=== PATIENT | female | born 1970 | race Asian ===

== ENCOUNTER 2016-07-05 19:00 | Emergency (ER) | payer OTHER ==
[2016-07-05] MEDS ORDERED: ACETAMINOPHEN 325 MG TAB As Ordered ONE (19:44)
--- NOTE | 2016-07-05 20:50 | REPUSA ---
HISTORY: Trauma TECHNIQUE: -CT head: Axial CT was obtained at 5 mm slice thickness from the skull base to the vertex without the use of intravenous contrast. -CT C-spine: Contiguous noncontrast transaxial 2.[address] images were obtained through the cervical sp ine. Reconstructions were then created in the axial plane at 1.25 mm from which reformations were gen erated in the coronal and sagittal planes. COMPARISON: None FINDINGS: CT head: No acute intracranial hemorrhage or evidence of acute transcortical ischemia. No intra-axial or extra ction fluid collection, subfalcine herniation, midline shift, or hydrocephalus. There is diffuse mild to moderate prominence of the cortical sulci and ventricular system; consistent with age-appropriate cerebral and cerebellar and cerebral atrophy. Mild to moderate bilateral perive ntricular and subcortical white matter hypolucencies also noted consistent with chronic microvascular ischemic changes. The posterior fossa and brainstem are within normal limits. The osseous structures are intact. The pa ranasal sinuses, mastoid air cells, orbital compartments, and extra cranial soft tissues are unremark able. CT C-spine: No acute fracture, dislocation, or suspicious lesion. No evidence of significant arthritis and alignment is maintained without spondylolisthesis. There are no significant disc herniations or evidence of canal stenosis. The foramina, vertebral body, and dis c space heights are preserved. Odontoid process is intact. The neck soft tissues and airways are unremarkable with no hematoma or swelling. IMPRESSION: No acute intracranial or C-spine injury.
[2016-07-05] MEDS ORDERED: tiZANidine 4 MG TAB As Ordered ONE (21:09)
[2016-07-05] MEDS ORDERED: IBUPROFEN 400 MG TAB As Ordered ONE (21:09)
--- NOTE | 2016-07-05 21:22 | EDDOCDS ---
Physician Documentation [facility] Name: Mario Alberto Jones Age: 46 yrs Sex: Female : 1970 Arrival Date: 07/05/2016 Time: 19:00 Bed I7 / 29 Private MD: Other - Complete Info On Cds Disposition: 07/05/16 20:59 Discharged to Home/Self Care. Impression: Sprain of ligaments of cervical spine. - Condition is Stable. - Discharge Instructions: Cervical Sprain. - Prescriptions for Zanaflex 4 mg Oral Tablet - take 1 tablet by ORAL route every 8 hours As needed; 20 tablet. Ibuprofen 400 mg Oral Tablet - take 1 tablet by ORAL route every 6 hours As needed take with food; 30 tablet. - Medication Reconciliation, Local Pharmacy Hours form. - Follow up: [facility]; When: 4 - 5 days; Reason: Continuance of care. Follow up: Emergency Department; When: As needed; Reason: Worsening of conditions. - Problem is new. - Symptoms have improved. Historical: - Allergies: No known drug Allergies; - Home Meds: 1. none - PMHx: none; - PSHx: none; - Social history: Smoking status: Patient states was never smoker of tobacco. No barriers to communication noted, The patient speaks fluent Danish, Speaks appropriately for age. - Family history: Not pertinent. - : The pt / caregiver states he / she is not on anticoagulants. Home medication list is obtained from the patient. - Exposure Risk Screening:: None identified. 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 1 in. (154.94 cm) (R); Pain 3/10; 19:57 BP 107 / 64; Pulse 78; Resp 18; Temp 98.1(O); Pulse Ox 98% on R/A; Pain 0/10; kb5 21:04 BP 108 / 65; Pulse 80; Resp 18; Temp 98.0(O); Pulse Ox 98% on R/A; Pain 0/10; kb5 19:03 Body Mass Index 20.79 (49.90 kg, 154.94 cm) gr2 MDM: 19:29 Recheck Vital Signs, perform reassessment and enter into [employer] ordered. dk1 19:29 Acetaminophen Tablet 650 mg PO once ordered. dk1 19:30 CT Head Without Contrast Ordered. EDMS 19:30 CT Spine,Cervical W/o Contrast Ordered. EDMS 20:17 Financial registration complete. gjb 21:02 Ibuprofen 400 mg PO once ordered. dk1 21:02 tiZANidine 4 mg PO once; dispense to go, pt is driving ordered. dk1 Administered Medications: 19:47 Drug: Acetaminophen 650 mg [acetaminophen 325 mg tablet (2 tabs)] Route: PO; ld5 21:17 Follow up: Response: No significant change. ld5 21:16 Drug: Ibuprofen 400 mg [ibuprofen 400 mg tablet (1 tabs)] Route: PO; ld5 21:17 Follow up: Response: Pt left department before re-evaluation is appropriate ld5 21:16 Drug: tiZANidine 4 mg Route: PO; ld5 21:17 Follow up: Response: Med's dispensed home ld5 Signatures: Dispatcher [employer] EDMS Isaías Wong, RN RN Daquan De Souza, PAPenny PA-C dk1 Nilda AngelesRN RN ld5 Jodi Babcock MTDD
--- NOTE | 2016-07-05 21:22 | EDDOCDS ---
Nurse's Notes [facility] Name: Mario Alberto Jones Age: 46 yrs Sex: Female : 1970 Arrival Date: 07/05/2016 Time: 19:00 Bed I7 / 29 Private MD: Other - Complete Info On Cds Diagnosis: Sprain of ligaments of cervical spine Presentation: 07/05 19:14 Presenting complaint: Patient states: she fell yesterday landing on back and striking cz head on pavement no LOC today pt has stiff neck and pain with movement. Adult Sepsis Screening: The patient does not have new or worsening altered mentation. Patient's respiratory rate is less than 22. Systolic blood pressure is greater than 100. Patient has a qSOFA score of 0- Negative Sepsis Screen. Suicide/Homicide risk assessment- the patient denies having any suicidal and/or homicidal ideations and does not present with any other emotional, behavioral or mental health complaints. Status: The patient is a dependent. Transition of care: patient was not received from another setting of care. 19:14 Acuity: KEITH Level 4 cz 19:14 Method Of Arrival: Walkin/Carried/Asstd cz Triage Assessment: 19:16 General: Appears in no apparent distress. Pain: Location: neck Pain currently is 4 out cz of 10 on a pain scale. 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 none - PMHx: none; - PSHx: none; - Social history: Smoking status: Patient states was never smoker of tobacco. No barriers to communication noted, The patient speaks fluent Kinyarwanda, Speaks appropriately for age. - Family history: Not pertinent. - : The pt / caregiver states he / she is not on anticoagulants. Home medication list is obtained from the patient. - Exposure Risk Screening:: None identified. Screenin:18 Screening information is obtained from the patient. Fall risk: No risks identified. ld5 Assistance ADL's: requires no assistance with activities of daily living. Abuse/DV Screen: The patient / caregiver reports he/she is: not in a situation that causes fear, pain or injury. Nutritional screening: No deficits noted. Advance Directives: There is no active DNR order. home support is adequate. Assessment: 19:47 General: Appears in no apparent distress, Behavior is cooperative. Pain: Location: neck ld5 Pain currently is 4 out of 10 on a pain scale. Neurological: Level of Consciousness is awake, alert. Respiratory: Airway is patent Respiratory effort is even, unlabored. Musculoskeletal: collar in place. 21:18 General: Appears in no apparent distress, Behavior is cooperative. Neurological: Level ld5 of Consciousness is awake, alert. Respiratory: Airway is patent Respiratory effort is even, unlabored. Vital Signs: 19:03 BP 120 / 52; Pulse 86; Resp 18 S; Temp 98.6(O); Pulse Ox 99% on R/A; Weight 49.9 kg gr2 (R); Height 5 ft. 1 in. (154.94 cm) (R); Pain 3/10; 19:57 BP 107 / 64; Pulse 78; Resp 18; Temp 98.1(O); Pulse Ox 98% on R/A; Pain 0/10; kb5 21:04 BP 108 / 65; Pulse 80; Resp 18; Temp 98.0(O); Pulse Ox 98% on R/A; Pain 0/10; kb5 19:03 Body Mass Index 20.79 (49.90 kg, 154.94 cm) gr2 Vitals: 19:03 Log In Time: July 05, 2016 at 19:03. gr2 ED Course: 19:02 Patient visited by Yaneli Cuba. gr2 19:02 Patient moved to Waiting gr2 19:03 Other - Complete Info On Cds is Private Physician. gr2 19:04 Patient visited by Yaneli Cuba. gr2 19:04 Patient moved to Pre RCE gr2 19:16 Triage Initiated cz 19:18 Patient moved to I7 cz 19:25 Daquan Moe PA-C is PHCP. dk1 19:25 Bentley Richardson DO is Attending Physician. dk1 19:26 Patient visited by Daquan Moe PA-C. dk1 19:34 Patient visited by Yaneli Cuba. gr2 19:48 Patient visited by Nilda Angeles RN. ld5 19:58 Patient visited by Mina Anderson PCA. kb5 20:59 [facility] is Referral Physician. dk1 21:09 Patient visited by Mina Anderson PCA. kb5 21:18 The patient / caregiver is instructed regarding the plan of care and ED course. Patient ld5 has correct armband on for positive identification. 21:18 No IV's were initiated during this patient's visit. No procedures done that require ld5 assistance. 21:21 Patient visited by Nilda Angeles RN. ld5 Administered Medications: 19:47 Drug: Acetaminophen 650 mg [acetaminophen 325 mg tablet (2 tabs)] Route: PO; ld5 21:17 Follow up: Response: No significant change. ld5 21:16 Drug: Ibuprofen 400 mg [ibuprofen 400 mg tablet (1 tabs)] Route: PO; ld5 21:17 Follow up: Response: Pt left department before re-evaluation is appropriate ld5 21:16 Drug: tiZANidine 4 mg Route: PO; ld5 21:17 Follow up: Response: Med's dispensed home ld5 Order Results: There are currently no results for this order. Outcome: 20:59 Discharge ordered by Provider. dk1 21:18 Discharge Assessment: Patient awake, alert and oriented x 3. No cognitive and/or ld5 functional deficits noted. Patient verbalized understanding of disposition instructions. patient administered narcotics - no. The following High Risk Discharge criteria are identified: None. Discharged to home ambulatory. Condition: stable. Discharge instructions given to patient, Instructed on discharge instructions, follow up and referral plans. medication usage, no driving heavy equipment, Demonstrated understanding of instructions, medications, Pt was receptive of discharge instructions/ teaching. Prescriptions given X 2. CT Study completed. Property :Personal belongings accompany Pt. 21:21 Patient left the ED. ld5 Signatures: Isaías Wong RN RN cz Keyes, David, PA-C PA-C dk1 Mina Anderson, SURGERY SPECIALIST SURGERY SPECIALIST kb5 Nilda Angeles RN RN ld5 Yaneli Cuba gr2 Corrections: (The following items were deleted from the chart) 19:34 19:03 BP 120 / 52; Pulse 86bpm; Resp 18bpm; Spontaneous; Pulse Ox 66% RA; Temp 98.6F gr2 Oral; 49.9 kg Reported; Height 5 ft. 1 in. Reported; BMI: 20.7; Pain 3/10; gr2 MTDD
--- NOTE | 2016-07-07 22:22 | EDDOCDS ---
Nurse's Notes [facility] Name: Mario Alberto Jones Age: 46 yrs Sex: Female : 1970 Arrival Date: 07/05/2016 Time: 19:00 Bed I7 / 29 Private MD: Other - Complete Info On Cds Diagnosis: Sprain of ligaments of cervical spine Presentation: 07/05 19:14 Presenting complaint: Patient states: she fell yesterday landing on back and striking cz head on pavement no LOC today pt has stiff neck and pain with movement. Adult Sepsis Screening: The patient does not have new or worsening altered mentation. Patient's respiratory rate is less than 22. Systolic blood pressure is greater than 100. Patient has a qSOFA score of 0- Negative Sepsis Screen. Suicide/Homicide risk assessment- the patient denies having any suicidal and/or homicidal ideations and does not present with any other emotional, behavioral or mental health complaints. Status: The patient is a dependent. Transition of care: patient was not received from another setting of care. 19:14 Acuity: KEITH Level 4 cz 19:14 Method Of Arrival: Walkin/Carried/Asstd cz Triage Assessment: 19:16 General: Appears in no apparent distress. Pain: Location: neck Pain currently is 4 out cz of 10 on a pain scale. 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 none - PMHx: none; - PSHx: none; - Social history: Smoking status: Patient states was never smoker of tobacco. No barriers to communication noted, The patient speaks fluent Lithuanian, Speaks appropriately for age. - Family history: Not pertinent. - : The pt / caregiver states he / she is not on anticoagulants. Home medication list is obtained from the patient. - Exposure Risk Screening:: None identified. Screenin:18 Screening information is obtained from the patient. Fall risk: No risks identified. ld5 Assistance ADL's: requires no assistance with activities of daily living. Abuse/DV Screen: The patient / caregiver reports he/she is: not in a situation that causes fear, pain or injury. Nutritional screening: No deficits noted. Advance Directives: There is no active DNR order. home support is adequate. Assessment: 19:47 General: Appears in no apparent distress, Behavior is cooperative. Pain: Location: neck ld5 Pain currently is 4 out of 10 on a pain scale. Neurological: Level of Consciousness is awake, alert. Respiratory: Airway is patent Respiratory effort is even, unlabored. Musculoskeletal: collar in place. 21:18 General: Appears in no apparent distress, Behavior is cooperative. Neurological: Level ld5 of Consciousness is awake, alert. Respiratory: Airway is patent Respiratory effort is even, unlabored. Vital Signs: 19:03 BP 120 / 52; Pulse 86; Resp 18 S; Temp 98.6(O); Pulse Ox 99% on R/A; Weight 49.9 kg gr2 (R); Height 5 ft. 1 in. (154.94 cm) (R); Pain 3/10; 19:57 BP 107 / 64; Pulse 78; Resp 18; Temp 98.1(O); Pulse Ox 98% on R/A; Pain 0/10; kb5 21:04 BP 108 / 65; Pulse 80; Resp 18; Temp 98.0(O); Pulse Ox 98% on R/A; Pain 0/10; kb5 19:03 Body Mass Index 20.79 (49.90 kg, 154.94 cm) gr2 Vitals: 19:03 Log In Time: July 05, 2016 at 19:03. gr2 ED Course: 19:02 Patient visited by Yaneli Cuba. gr2 19:02 Patient moved to Waiting gr2 19:03 Other - Complete Info On Cds is Private Physician. gr2 19:04 Patient visited by Yaneli Cuba. gr2 19:04 Patient moved to Pre RCE gr2 19:16 Triage Initiated cz 19:18 Patient moved to I7 cz 19:25 Daquan Moe PA-C is PHCP. dk1 19:25 Bentley Richardson DO is Attending Physician. dk1 19:26 Patient visited by Daquan Moe PA-C. dk1 19:34 Patient visited by Yaneli Cuba. gr2 19:48 Patient visited by Nilda Angeles RN. ld5 19:58 Patient visited by Mina Anderson PCA. kb5 20:59 [facility] is Referral Physician. dk1 21:09 Patient visited by Mina Anderson PCA. kb5 21:18 The patient / caregiver is instructed regarding the plan of care and ED course. Patient ld5 has correct armband on for positive identification. 21:18 No IV's were initiated during this patient's visit. No procedures done that require ld5 assistance. 21:21 Patient visited by Nilda Angeles RN. ld5 21:23 CT Head Without Contrast Returned. EDMS 21:23 CT Spine,Cervical W/o Contrast Returned. EDMS 21:37 Patient name changed from Mitsuyo\S\\S\Jones\S\ to Mitsuyo\S\ \S\Jones. EDMS 21:38 [facility] Payment Agreement was scanned into [employer] and attached to record. gjb 22:17 T-Sheet-- Draft Copy was scanned into [employer] and attached to record. klr Administered Medications: 19:47 Drug: Acetaminophen 650 mg [acetaminophen 325 mg tablet (2 tabs)] Route: PO; ld5 21:17 Follow up: Response: No significant change. ld5 21:16 Drug: Ibuprofen 400 mg [ibuprofen 400 mg tablet (1 tabs)] Route: PO; ld5 21:17 Follow up: Response: Pt left department before re-evaluation is appropriate ld5 21:16 Drug: tiZANidine 4 mg Route: PO; ld5 21:17 Follow up: Response: Med's dispensed home ld5 Order Results: Radiology Order: CT Head Without Contrast Test: CT Head Without Contrast REASON FOR EXAMINATION: Trauma; ; HISTORY: Trauma; TECHNIQUE:; -CT head: Axial CT was obtained at 5 mm slice thickness from the skull base to the vertex without the; use of intravenous contrast.; -CT C-spine: Contiguous noncontrast transaxial 2.[address] images were obtained through the cervical sp; ine. Reconstructions were then created in the axial plane at 1.25 mm from which reformations were gen; erated in the coronal and sagittal planes.; COMPARISON: None; FINDINGS:; CT head:; No acute intracranial hemorrhage or evidence of acute transcortical ischemia. No intra-axial or extra; ction fluid collection, subfalcine herniation, midline shift, or hydrocephalus.; There is diffuse mild to moderate prominence of the cortical sulci and ventricular system; consistent; with age-appropriate cerebral and cerebellar and cerebral atrophy. Mild to moderate bilateral perive; ntricular and subcortical white matter hypolucencies also noted consistent with chronic microvascular; ischemic changes.; The posterior fossa and brainstem are within normal limits. The osseous structures are intact. The pa; ranasal sinuses, mastoid air cells, orbital compartments, and extra cranial soft tissues are unremark; able.; CT C-spine:; No acute fracture, dislocation, or suspicious lesion.; No evidence of significant arthritis and alignment is maintained without spondylolisthesis. There are; no significant disc herniations or evidence of canal stenosis. The foramina, vertebral body, and dis; c space heights are preserved. Odontoid process is intact.; The neck soft tissues and airways are unremarkable with no hematoma or swelling.; ; IMPRESSION:; No acute intracranial or C-spine injury.; ; Radiology Order: CT Spine,Cervical W/o Contrast Test: CT Spine,Cervical W/o Contrast REASON FOR EXAMINATION: Trauma; ; HISTORY: Trauma; TECHNIQUE:; -CT head: Axial CT was obtained at 5 mm slice thickness from the skull base to the vertex without the; use of intravenous contrast.; -CT C-spine: Contiguous noncontrast transaxial 2.[address] images were obtained through the cervical sp; ine. Reconstructions were then created in the axial plane at 1.25 mm from which reformations were gen; erated in the coronal and sagittal planes.; COMPARISON: None; FINDINGS:; CT head:; No acute intracranial hemorrhage or evidence of acute transcortical ischemia. No intra-axial or extra; ction fluid collection, subfalcine herniation, midline shift, or hydrocephalus.; There is diffuse mild to moderate prominence of the cortical sulci and ventricular system; consistent; with age-appropriate cerebral and cerebellar and cerebral atrophy. Mild to moderate bilateral perive; ntricular and subcortical white matter hypolucencies also noted consistent with chronic microvascular; ischemic changes.; The posterior fossa and brainstem are within normal limits. The osseous structures are intact. The pa; ranasal sinuses, mastoid air cells, orbital compartments, and extra cranial soft tissues are unremark; able.; CT C-spine:; No acute fracture, dislocation, or suspicious lesion.; No evidence of significant arthritis and alignment is maintained without spondylolisthesis. There are; no significant disc herniations or evidence of canal stenosis. The foramina, vertebral body, and dis; c space heights are preserved. Odontoid process is intact.; The neck soft tissues and airways are unremarkable with no hematoma or swelling.; ; IMPRESSION:; No acute intracranial or C-spine injury.; ; Outcome: 20:59 Discharge ordered by Provider. dk1 21:18 Discharge Assessment: Patient awake, alert and oriented x 3. No cognitive and/or ld5 functional deficits noted. Patient verbalized understanding of disposition instructions. patient administered narcotics - no. The following High Risk Discharge criteria are identified: None. Discharged to home ambulatory. Condition: stable. Discharge instructions given to patient, Instructed on discharge instructions, follow up and referral plans. medication usage, no driving heavy equipment, Demonstrated understanding of instructions, medications, Pt was receptive of discharge instructions/ teaching. Prescriptions given X 2. CT Study completed. Property :Personal belongings accompany Pt. 21:21 Patient left the ED. ld5 Signatures: Dispatcher [employer] EDMS Isaías Wong, RN RN Daquan De Souza, PA-C PA-C dk1 Mina Anderson, JOB PUTTER UP AND TICKET PREPARER JOB PUTTER UP AND TICKET PREPARER kb5 Nilda Angeles RN RN ld5 Yaneli Cuba gr2 Jodi Babcock Kathie klr Corrections: (The following items were deleted from the chart) 19:34 19:03 BP 120 / 52; Pulse 86bpm; Resp 18bpm; Spontaneous; Pulse Ox 66% RA; Temp 98.6F gr2 Oral; 49.9 kg Reported; Height 5 ft. 1 in. Reported; BMI: 20.7; Pain 3/10; gr2 Chart Complete MTDD
--- NOTE | 2016-07-07 22:22 | EDDOCDS ---
Physician Documentation [facility] Name: Mario Alberto Jones Age: 46 yrs Sex: Female : 1970 Arrival Date: 07/05/2016 Time: 19:00 Bed I7 / 29 Private MD: Other - Complete Info On Cds Disposition: 07/05/16 20:59 Discharged to Home/Self Care. Impression: Sprain of ligaments of cervical spine. - Condition is Stable. - Discharge Instructions: Cervical Sprain. - Prescriptions for Zanaflex 4 mg Oral Tablet - take 1 tablet by ORAL route every 8 hours As needed; 20 tablet. Ibuprofen 400 mg Oral Tablet - take 1 tablet by ORAL route every 6 hours As needed take with food; 30 tablet. - Medication Reconciliation, Local Pharmacy Hours form. - Follow up: [facility]; When: 4 - 5 days; Reason: Continuance of care. Follow up: Emergency Department; When: As needed; Reason: Worsening of conditions. - Problem is new. - Symptoms have improved. Historical: - Allergies: No known drug Allergies; - Home Meds: 1. none - PMHx: none; - PSHx: none; - Social history: Smoking status: Patient states was never smoker of tobacco. No barriers to communication noted, The patient speaks fluent Kinyarwanda, Speaks appropriately for age. - Family history: Not pertinent. - : The pt / caregiver states he / she is not on anticoagulants. Home medication list is obtained from the patient. - Exposure Risk Screening:: None identified. 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 1 in. (154.94 cm) (R); Pain 3/10; 19:57 BP 107 / 64; Pulse 78; Resp 18; Temp 98.1(O); Pulse Ox 98% on R/A; Pain 0/10; kb5 21:04 BP 108 / 65; Pulse 80; Resp 18; Temp 98.0(O); Pulse Ox 98% on R/A; Pain 0/10; kb5 19:03 Body Mass Index 20.79 (49.90 kg, 154.94 cm) gr2 MDM: 19:29 Recheck Vital Signs, perform reassessment and enter into [employer] ordered. dk1 19:29 Acetaminophen Tablet 650 mg PO once ordered. dk1 19:30 CT Head Without Contrast Ordered. EDMS 19:30 CT Spine,Cervical W/o Contrast Ordered. EDMS 20:17 Financial registration complete. gjb 21:02 Ibuprofen 400 mg PO once ordered. dk1 21:02 tiZANidine 4 mg PO once; dispense to go, pt is driving ordered. dk1 21:38 [facility] Payment Agreement was scanned into [employer] and attached to record. gjb 22:17 T-Sheet-- Draft Copy was scanned into [employer] and attached to record. klr Administered Medications: 19:47 Drug: Acetaminophen 650 mg [acetaminophen 325 mg tablet (2 tabs)] Route: PO; ld5 21:17 Follow up: Response: No significant change. ld5 21:16 Drug: Ibuprofen 400 mg [ibuprofen 400 mg tablet (1 tabs)] Route: PO; ld5 21:17 Follow up: Response: Pt left department before re-evaluation is appropriate ld5 21:16 Drug: tiZANidine 4 mg Route: PO; ld5 21:17 Follow up: Response: Med's dispensed home ld5 Signatures: Dispatcher [employer] EDIsaías Stewart, RN Daquan Lehman PA-C PAPenny dk1 Nilda Angeles RN RN ld5 Jodi Babcock Kathie klr The chart was reviewed and I authenticate all verbal orders and agree with the evaluation and treatment provided.Attachments: 21:38 [facility] Payment Agreement gjb 22:17 T-Sheet-- Draft Copy klr Chart Complete MTDD
--- NOTE | 2016-07-07 22:22 | EDDOCDS ---
Physician Documentation [facility] Name: Mario Alberto Jones Age: 46 yrs Sex: Female : 1970 Arrival Date: 07/05/2016 Time: 19:00 Bed I7 / 29 Private MD: Other - Complete Info On Cds Disposition: 07/05/16 20:59 Discharged to Home/Self Care. Impression: Sprain of ligaments of cervical spine. - Condition is Stable. - Discharge Instructions: Cervical Sprain. - Prescriptions for Zanaflex 4 mg Oral Tablet - take 1 tablet by ORAL route every 8 hours As needed; 20 tablet. Ibuprofen 400 mg Oral Tablet - take 1 tablet by ORAL route every 6 hours As needed take with food; 30 tablet. - Medication Reconciliation, Local Pharmacy Hours form. - Follow up: [facility]; When: 4 - 5 days; Reason: Continuance of care. Follow up: Emergency Department; When: As needed; Reason: Worsening of conditions. - Problem is new. - Symptoms have improved. Historical: - Allergies: No known drug Allergies; - Home Meds: 1. none - PMHx: none; - PSHx: none; - Social history: Smoking status: Patient states was never smoker of tobacco. No barriers to communication noted, The patient speaks fluent Bulgarian, Speaks appropriately for age. - Family history: Not pertinent. - : The pt / caregiver states he / she is not on anticoagulants. Home medication list is obtained from the patient. - Exposure Risk Screening:: None identified. TAKER OUT: 07/05 19:16 LMP 06/10/2016 cz Vital Signs: 19:03 BP 120 / 52; Pulse 86; Resp 18 S; Temp 98.6(O); Pulse Ox 99% on R/A; Weight 49.9 kg / gr2 110.01 lbs (R); Height 5 ft. 1 in. (154.94 cm) (R); Pain 3/10; 19:57 BP 107 / 64; Pulse 78; Resp 18; Temp 98.1(O); Pulse Ox 98% on R/A; Pain 0/10; kb5 21:04 BP 108 / 65; Pulse 80; Resp 18; Temp 98.0(O); Pulse Ox 98% on R/A; Pain 0/10; kb5 19:03 Body Mass Index 20.79 (49.90 kg, 154.94 cm) gr2 MDM: 19:29 Recheck Vital Signs, perform reassessment and enter into [employer] ordered. dk1 19:29 Acetaminophen Tablet 650 mg PO once ordered. dk1 19:30 CT Head Without Contrast Ordered. EDMS 19:30 CT Spine,Cervical W/o Contrast Ordered. EDMS 20:17 Financial registration complete. gjb 21:02 Ibuprofen 400 mg PO once ordered. dk1 21:02 tiZANidine 4 mg PO once; dispense to go, pt is driving ordered. dk1 21:38 [facility] Payment Agreement was scanned into [employer] and attached to record. gjb 22:17 T-Sheet-- Draft Copy was scanned into [employer] and attached to record. klr Administered Medications: 19:47 Drug: Acetaminophen 650 mg [acetaminophen 325 mg tablet (2 tabs)] Route: PO; ld5 21:17 Follow up: Response: No significant change. ld5 21:16 Drug: Ibuprofen 400 mg [ibuprofen 400 mg tablet (1 tabs)] Route: PO; ld5 21:17 Follow up: Response: Pt left department before re-evaluation is appropriate ld5 21:16 Drug: tiZANidine 4 mg Route: PO; ld5 21:17 Follow up: Response: Med's dispensed home ld5 Signatures: Dispatcher [employer] EDIsaías Stewart, RN Daquan Lehman PA-C PAPenny dk1 Nilda Angeles RN RN ld5 Jodi Babcock Kathie klr The chart was reviewed and I authenticate all verbal orders and agree with the evaluation and treatment provided.Attachments: 21:38 [facility] Payment Agreement gjb 22:17 T-Sheet-- Draft Copy klr Chart Complete MTDD
== END 2016-07-05 21:21 | disposition home or self-care (01) ==
LOC: M ED 19:00
DX: S13.4XXA Sprain of ligaments of cervical spine, initial encounter (principal); W01.0XXA Fall on same level from slipping, tripping and stumbling without subsequent striking against object, initial encounter; Y92.89 Other specified places as the place of occurrence of the external cause; Y93.89 Activity, other specified; Y99.8 Other external cause status